=== PATIENT | female | born 1945 | race Caucasian/White ===

== ENCOUNTER → 2019-07-11 11:13 | Outpatient (BNVA) | payer MEDICARE, OTHER, SELFPAY | PROVIDERS: Family Provider Nurse Practitioner; PCP Nurse Practitioner; Visit Provider Nurse Practitioner | DX: E11.65 Type 2 diabetes mellitus with hyperglycemia (principal) | CPT/HCPCS: 80053; 80061; 83036 ==

== ENCOUNTER 2019-11-27 15:54 | Emergency (ER) | payer MEDICARE, OTHER, SELFPAY ==
[2019-11-27 16:01] VITALS: BMI 23.3
[2019-11-27 16:04] VITALS: BP 173/95; PULSE 116; RESP 20; TEMP 36.9; O2SAT 92
--- NOTE | 2019-11-27 16:25 | W.ED.EPISTAX ---
Documented by User: Irasema Kraft 11/27/19 16:45 HPI - Epistaxis General: Chief complaint: Epistaxis Stated complaint: NOSEBLEED Time Seen by Provider: 11/27/19 16:00 Source: patient Mode of arrival: EMS Limitations: no limitations History of Present Illness: HPI Narrative: nosebleed since waking up from nap about 2 hours ago complaint: epistaxis Location: left nostril Duration: constant Review of Systems General: Reports: 10 or more systems reviewed and unremarkable except in HPI and below ENMT: Reports: epistaxis PFSH ED PFSH: Medical History Benign hypertension Bipolar depression Controlled diabetes mellitus with hyperglycemia COPD mixed type Enrolled in chronic care management Frequency of micturition Surgical History H/O dilation and curettage History of appendectomy History of cataract History of salpingectomy History of thyroidectomy History of tonsillectomy and adenoidectomy Family History Other Diabetes Hypertension Denies family history of Bleeding disorder Social History Smoking and tobacco status: current every day smoker Second hand smoke exposure: Yes Smoking risk assessment/counseling performed?: Yes Alcohol intake: never Desire information about alcohol rehabilitation?: No Counseling given: No Desire information about substance/drug rehabilitation?: No Counseling given: No Caregiver/support person: No Lives independently: Yes Household members: none Marital status: Single service: No Current occupational status: retired History of recent travel: No Current gender identity: Female Physical Exam Const: COMMON NORMALS: no acute distress, patient oriented x3, no limitations and alert GENERAL APPEARANCE: cooperative and comfortable ORIENTATION/CONSCIOUSNESS: Yes awake, Yes oriented to person, Yes oriented to place and Yes oriented to time HENMT: COMMON NORMALS: normocephalic, atraumatic, external ears normal, EAC's normal, TM's normal bilaterally and Normal external nose present HEAD & SCALP: normal to inspection, normocephalic and atraumatic FACE & SINUS: normal facial exam, sinuses nontender and face symmetric NOSE: Normal external nose present and Epistaxis present on the left active bleeding, clots present and source not visualized EXTERNAL EAR: Yes external ears normal EXTERNAL AUDITORY CANAL: EAC's normal TYMPANIC MEMBRANE: TM's normal bilaterally MOUTH: Normal oral and palatal mucosa present, lip normal and tongue normal THROAT: posterior oropharynx normal, tonsils normal and uvula midline Eye: COMMON NORMALS: Equal, round and reactive pupils present, EOMs intact bilaterally and conjunctivae normal GENERAL EYE: appearance normal, both eyes and all related structures and normal light reflex EYELID: eyelids normal CONJUNCTIVA: Yes conjunctivae normal PUPIL: Yes Equal, round and reactive pupils present EOM: Yes EOM abnormal DIRECT OPHTHALMOSCOPY: Yes normal light reflex Neck/C-Spine: COMMON NORMALS: full ROM, no lymphadenopathy, supple, no meningeal signs, no JVD and Thyroid normal GENERAL: Yes normal visual inspection THYROID: Thyroid normal CERVICAL SPINE: Yes cervical ROM normal and Yes normal cervical lordosis Lymph: LYMPHATIC: no lymphadenopathy noted Chest: COMMONS NORMALS: normal inspection of the chest and normal palpation of entire chest wall Resp: COMMON NORMALS: normal respiratory effort, No retractions and clear to auscultation bilaterally AUSCULTATION: clear to auscultation bilaterally Cardio: COMMON NORMALS: no JVD, regular rate, regular rhythm, S1 normal heart sound present, S2 normal heart sound present, No gallops present (Cardio), No clicks present (Cardio), No murmurs present (Cardio), No rub (Cardio) and Peripheral pulses 2+ throughout RATE: regular rate RHYTHM: regular rhythm HEART SOUNDS: S1 normal heart sound present and S2 normal heart sound present PERIPHERAL PULSES: Peripheral pulses 2+ throughout GI: COMMON NORMALS: Normal to inspection, nondistended, normoactive bowel sounds present, Soft to palpation, non-tender and no masses PALPATION: Yes Soft to palpation : COMMON NORMALS: Yes no CVA tenderness and Yes normal external appearance BLADDER/KIDNEY EXAM: Yes no CVA tenderness Back/Pelvis: COMMON NORMALS: no CVA tenderness, thoracic and lumbar spine normal to inspection, no thoracic nor lumbar tenderness and thoraco-lumbar ROM normal Extremity: COMMON NORMALS: normal to inspection, full ROM, capillary refill normal, no joint enlargement, no clubbing, cyanosis or edema, no calf tenderness and no pedal edema GENERAL: Yes normal exam except as noted Neuro: COMMON NORMALS: patient oriented x3, moves all extremities, no focal motor deficits, no sensory deficits noted and gait normal SENSORIUM/ORIENTATION: Yes alert, Yes oriented to person, Yes oriented to place and Yes oriented to time MENINGEAL SIGNS: Yes no meningeal signs Psych: COMMON NORMALS: mental status grossly normal, Normal thought process present, cooperative, normal affect, speech normal and activity/motor behavior normal SPEECH: Yes normal speech THOUGHT PROCESS: Normal thought process present Skin: COMMON NORMALS: no rashes or lesions noted, no wounds and turgor normal GENERAL SKIN EXAM: no rashes or lesions noted and turgor normal Procedures Epistaxis Control Time Out Performed: No Nostril: left Direct Inspection: anterior source identified Clots Removed by: suction Cautery Used: none Device Inserted: nasal tampon Patient Tolerated Procedure: well and no complications Course ED course: Pt presents from home with active epistaxis. Unknown trauma and pt only takes asa daily. Has not taken in 3 days. Woke up from nap at 1500 and left nostril was bleeding. Nasal tampon inserted at bedside; labs ordered. Vital Signs: Vital signs: Vital Signs Temperature 98.5 F 11/27/19 16:04 Pulse Rate 100 11/27/19 17:40 Respiratory Rate 18 11/27/19 17:40 Blood Pressure 190/88 11/27/19 17:40 Pulse Oximetry 91 11/27/19 17:40 MDM - Epistaxis Lab Data: Labs: Lab Results 11/27/19 11/27/19 Range/Units 17:10 17:10 WBC 12.3 H (4.0-10.0) 10^3/ uL RBC 4.13 (4.1-5.3) 10^6/u L Hgb 11.0 L (11.5-15.3) g/dL Hct 36.1 L (37.0-47.0) % MCV 87.4 (81-99) fL MCH 26.6 L (28.0-34.0) pg MCHC 30.5 (30.0-36.0) g/dL RDW 14.6 (12.1-15.1) % Plt Count 270 (130-400) 10^3/c mm MPV 9.6 (7.4-10.4) fL Neut % (Auto) 87.0 % Lymph % (Auto) 4.0 % [place] % (Auto) 6.8 % Eos % (Auto) 1.5 % Baso % (Auto) 0.2 % Neut # (Auto) 10.72 H (1.8-7.7) 10^3/u L Lymph # (Auto) 0.5 L (0.8-4.8) 10^3/u L [place] # (Auto) 0.8 (0.2-0.9) 10^3/u L Eos # (Auto) 0.2 (0.0-0.8) 10^3/u L Baso # (Auto) 0.0 (0.0-0.1) 10^3/u L Nucleated RBC % (a uto) 0 % Nucleated RBCs # 0.0 /100WBC PT 14.20 H (10.5-13.3) SECO NDS INR 1.07 (0.8-1.2) APTT 35.1 (23.9-36.7) SECO NDS Discharge Plan Discharge Patient Disposition: Home Clinical Impression: Acute anterior epistaxis Condition: Stable Prescriptions: No Action aspirin [Aspir-81] 81 mg tablet,delayed release (DR/EC) 81 mg PO DAILY RF: 0 meclizine 12.5 mg tablet 12.5 mg PO DAILY RF: 0 tramadol 50 mg tablet 50 mg PO TID PRNRF: 0 atorvastatin [Lipitor] 10 mg tablet 10 mg PO DAILY Qty: 30 RF: 2 buspirone 10 mg tablet 10 mg PO BID PRN (Reason: anxiety) Qty: 60 RF: 2 Bydureon BCise 2 mg/0.85 mL auto-injector 2 mg SUBCUT Q7D Qty: 3.4 RF: 2 lamotrigine 100 mg tablet 100 mg PO DAILY Qty: 30 RF: 2 magnesium oxide 400 mg magnesium tablet 400 mg PO BID Qty: 60 RF: 2 oxybutynin chloride 5 mg tablet 5 mg PO BID Qty: 60 RF: 2 venlafaxine [Effexor XR] 75 mg capsule,extended release 24hr 75 mg PO BID Qty: 60 RF: 2 albuterol sulfate 2.5 mg /3 mL (0.083 %) solution for nebulization 2.5 mg INHALATION Q4H PRN (Reason: shortness of breath or wheezing) Qty: 180 RF: 2 Discharge Orders: Discharge Order (Routine); Ordered 11/27/19 Ordered By: Nely Beltrán Referrals: Ayesha Harris, [facility] [Primary Care Provider] - Rickey Chanel MD [Physician] - Patient Instructions: Epistaxis (ED), Epistaxis - Adult Activity Restrictions/Additional Instructions: Case management should contact you on Thursday to set you up an appointment with Dr. Chanel, ENT. If their office cannot see you in the next 48 to 72 hours you need to follow-up with your primary care provider or return to the emergency department to remove your nasal tampon. Return sooner for continued nasal bleeding. Sign Out Sign Out Data: Patient Sign Out occurred on 11/27/19 at 17:01. Patient's care was discussed, and care was transferred from to AILYN Mandujano. Coding Level of Care Code ED Community Living Specialist for Chg Fwd Exam Comprehensive Documented by User: AILYN Mandujano 11/27/19 18:00 HPI - Epistaxis General: Chief complaint: Epistaxis Stated complaint: NOSEBLEED Time Seen by Provider: 11/27/19 16:00 [facility] ED PFSH: Medical History Benign hypertension Bipolar depression Controlled diabetes mellitus with hyperglycemia COPD mixed type Enrolled in chronic care management Frequency of micturition Surgical History H/O dilation and curettage History of appendectomy History of cataract History of salpingectomy History of thyroidectomy History of tonsillectomy and adenoidectomy Family History Other Diabetes Hypertension Denies family history of Bleeding disorder Social History Smoking and tobacco status: current every day smoker Second hand smoke exposure: Yes Smoking risk assessment/counseling performed?: Yes Alcohol intake: never Desire information about alcohol rehabilitation?: No Counseling given: No Desire information about substance/drug rehabilitation?: No Counseling given: No Caregiver/support person: No Lives independently: Yes Household members: none Marital status: Single service: No Current occupational status: retired History of recent travel: No Current gender identity: Female Course Vital Signs: Vital signs: Vital Signs Temperature 98.5 F 11/27/19 16:04 Pulse Rate 100 11/27/19 17:40 Respiratory Rate 18 11/27/19 17:40 Blood Pressure 190/88 11/27/19 17:40 Pulse Oximetry 91 11/27/19 17:40 MDM - Epistaxis MDM Narrative: Medical decision making narrative: Care was assumed from DEVONTE Putnam. At shift change she had already placed an anterior tampon to patient's left nare. We were pending results of patient CBC/coags. These are not concerning at this time. Upon reassessment patient has not had any further bleeding since the tampon was placed. I will go ahead and place referral for ENT for follow-up. Recommend if she cannot get into see Dr. Chanel in the next 48 to 72 hours she needs to follow-up with her primary care provider or return to the emergency department for nasal tampon removal. Lab Data: Labs: Lab Results 11/27/19 11/27/19 Range/Units 17:10 17:10 WBC 12.3 H (4.0-10.0) 10^3/ uL RBC 4.13 (4.1-5.3) 10^6/u L Hgb 11.0 L (11.5-15.3) g/dL Hct 36.1 L (37.0-47.0) % MCV 87.4 (81-99) fL MCH 26.6 L (28.0-34.0) pg MCHC 30.5 (30.0-36.0) g/dL RDW 14.6 (12.1-15.1) % Plt Count 270 (130-400) 10^3/c mm MPV 9.6 (7.4-10.4) fL Neut % (Auto) 87.0 % Lymph % (Auto) 4.0 % [place] % (Auto) 6.8 % Eos % (Auto) 1.5 % Baso % (Auto) 0.2 % Neut # (Auto) 10.72 H (1.8-7.7) 10^3/u L Lymph # (Auto) 0.5 L (0.8-4.8) 10^3/u L [place] # (Auto) 0.8 (0.2-0.9) 10^3/u L Eos # (Auto) 0.2 (0.0-0.8) 10^3/u L Baso # (Auto) 0.0 (0.0-0.1) 10^3/u L Nucleated RBC % (a uto) 0 % Nucleated RBCs # 0.0 /100WBC PT 14.20 H (10.5-13.3) SECO NDS INR 1.07 (0.8-1.2) APTT 35.1 (23.9-36.7) SECO NDS Discharge Plan Discharge Patient Disposition: Home Clinical Impression: Acute anterior epistaxis Condition: Stable Prescriptions: No Action aspirin [Aspir-81] 81 mg tablet,delayed release (DR/EC) 81 mg PO DAILY RF: 0 meclizine 12.5 mg tablet 12.5 mg PO DAILY RF: 0 tramadol 50 mg tablet 50 mg PO TID PRNRF: 0 atorvastatin [Lipitor] 10 mg tablet 10 mg PO DAILY Qty: 30 RF: 2 buspirone 10 mg tablet 10 mg PO BID PRN (Reason: anxiety) Qty: 60 RF: 2 Bydureon BCise 2 mg/0.85 mL auto-injector 2 mg SUBCUT Q7D Qty: 3.4 RF: 2 lamotrigine 100 mg tablet 100 mg PO DAILY Qty: 30 RF: 2 magnesium oxide 400 mg magnesium tablet 400 mg PO BID Qty: 60 RF: 2 oxybutynin chloride 5 mg tablet 5 mg PO BID Qty: 60 RF: 2 venlafaxine [Effexor XR] 75 mg capsule,extended release 24hr 75 mg PO BID Qty: 60 RF: 2 albuterol sulfate 2.5 mg /3 mL (0.083 %) solution for nebulization 2.5 mg INHALATION Q4H PRN (Reason: shortness of breath or wheezing) Qty: 180 RF: 2 Discharge Orders: Discharge Order (Routine); Ordered 11/27/19 Ordered By: Nely Beltrán Referrals: Ayesha Harris, [facility] [Primary Care Provider] - Rickey Chanel MD [Physician] - Patient Instructions: Epistaxis (ED), Epistaxis - Adult Activity Restrictions/Additional Instructions: Case management should contact you on Thursday to set you up an appointment with Dr. Chanel, ENT. If their office cannot see you in the next 48 to 72 hours you need to follow-up with your primary care provider or return to the emergency department to remove your nasal tampon. Return sooner for continued nasal bleeding. Sign Out Sign Out Data: Patient Sign Out occurred on 11/27/19 at 17:01. Patient's care was discussed, and care was transferred from to AILYN Mandujano. Coding Level of Care Code ED Community Living Specialist for Chg Fwd Exam Comprehensive
[2019-11-27 17:40] VITALS: BP 190/88; PULSE 100; RESP 18; O2SAT 91
[2019-11-27 17:44] LABS: Basophils % 0.2 %; Eosinophils # 0.2 10^3/uL (0.0-0.8); Eosinophils % 1.5 %; Hematocrit 36.1 % (37.0-47.0); Lymphocytes # 0.5 10^3/uL (0.8-4.8); Mean Corpuscular HGB Conc 30.5 g/dL (30.0-36.0); Mean Corpuscular Hemoglobin 26.6 pg (28.0-34.0); Mean Corpuscular Volume 87.4 fL (81-99); Mean Platelet Volume 9.6 fL (7.4-10.4); Monocytes # 0.8 10^3/uL (0.2-0.9); Monocytes % 6.8 %; Neutrophils # 10.72 10^3/uL (1.8-7.7); Nucleated Red Blood Cells % 0 %; Platelet Count 270 10^3/cmm (130-400); Red Blood Count 4.13 10^6/uL (4.1-5.3); Red Cell Distribution Width 14.6 % (12.1-15.1); White Blood Count 12.3 10^3/uL (4.0-10.0)
[2019-11-27 17:54] LABS: INR 1.07 (0.8-1.2)
[2019-11-27 17:55] LABS: Partial Thromboplastin Time 35.1 SECONDS (23.9-36.7)
[2019-11-27 18:17] VITALS: BP 181/77; PULSE 93; RESP 20; O2SAT 93
--- NOTE | 2019-11-28 09:34 | PC.SOCIAL ---
Spoke with Moriah at Dr Chanel office to alert her sending two referrals. Faxed this patient referral along with another one to number provided with confirmation that fax was sent successfully. Per Dr Chanel office they will call patient and let us know when appt scheduled.
--- NOTE | 2019-11-28 15:02 | PC.SOCIAL ---
Call received by Chrystal at ENT Dr Chanel office regarding the referral sent to her this am. Patient is scheduled for November 29, 2019 at 9:30am to follow up at clinic. Per Chrystal patient has been notified.
--- NOTE | 2019-11-30 12:19 | PC.SOCIAL ---
Call received yesterday by Dr Chanel office and patient did not attend her appointment.
--- NOTE | 2019-11-30 12:22 | PC.SOCIAL ---
Followed up with patient and she indicates she no longer needs to be seen by Dr Chanel. She was unable to make it to appointment per her report. She indicates doing well now.
== END 2019-11-27 18:11 | disposition home or self-care (01) ==
PROVIDERS: Nurse Practitioner Family; Emergency Provider Physician Assistant; PCP Nurse Practitioner
DX: R04.0 Epistaxis (principal); Z79.82 Long term (current) use of aspirin; I10 Essential (primary) hypertension; E11.9 Type 2 diabetes mellitus without complications; J44.9 Chronic obstructive pulmonary disease, unspecified; F17.210 Nicotine dependence, cigarettes, uncomplicated
CPT/HCPCS: 30901; 12345; 36415; 85025; 85610; 85730; 99282

== ENCOUNTER 2019-12-07 10:55 | Emergency (ER) | payer MEDICARE, OTHER, SELFPAY ==
[2019-12-07] VITALS (7 sets, daily range): BP systolic 158–170; BP diastolic 65–104; PULSE 79–127; RESP 16–26; TEMP 36.6; O2SAT 93–98; BMI 19.3
--- NOTE | 2019-12-07 11:05 | XRR_ITS ---
PROCEDURE INFORMATION: Exam: XR Chest, 1 View Exam date and time: 12/07/2019 12:28 PM Age: 74 years old Clinical indication: Other: Weakness/dizzy x 2 weeks; Patient HX: Weak and dizzy x 2 weeks. HX copd. HX diabetes. HX cervical cancer TECHNIQUE: Imaging protocol: XR of the chest Views: 1 view. COMPARISON: CR Chest 2 views* [id number] 02/05/2016 10:41 AM FINDINGS: Lungs: COPD, interstitial prominence, and right basilar airspace disease. Pleural space: No significant pleural effusion. Heart/Mediastinum: No cardiomegaly. Bones/joints: Osteopenia and degenerative change. XR/XR chest 1V portable [id number] IMPRESSION: COPD, interstitial prominence, and right basilar airspace disease.
--- NOTE | 2019-12-07 11:18 | ECG_ITS ---
[facility] Test Date: 2019-12-07 Pat Name: Kia Jimenez Department: Room: Gender: Female Color Specialist: : 1945 Requested By: Uma Devine Order Number: [id number] [place] MD: Myke Schaeffer M.D. Measurements Intervals [place] Rate: 118 P: [place]: -1 QRS: 60 QRSD: 85 T: 85 QT: 301 QTc: 422 Interpretive Statements ATRIAL FLUTTER WITH VARIABLE CONDUCTION AND RAPID VENTRICULAR RESPONSE NONSPECIFIC ST & T-WAVE ABNORMALITY ABNORMAL RHYTHM ECG No previous ECG available for comparison Electronically Signed On 12-07-2019 12:18:54 CDT by Myke Schaeffer M.D. [email or web address]
--- NOTE | 2019-12-07 11:32 | W.ED.WEAKNES ---
HPI - Weakness General: Chief complaint: Weakness Stated complaint: V/D WEAKNESS Time Seen by Provider: 12/07/19 11:03 History of Present Illness: HPI Narrative: This patient is a 74-year-old female presenting today with weakness. She tells me that this is been going on since February of last year. She said that at that time she went to her primary care doctor with vaginal bleeding and was referred to Dr. patricio gray. After lots of testing she finally got results in June and learned that she had cancer of the uterus and cervix. Dr. patricio gray did not think surgery was a good option and referred her back to Dr. Quintana for chemotherapy and radiation. She has not started any treatment yet, she says because of COVID. She said she is continued to have vaginal bleeding on a daily basis. She denies any history of bleeding disorder. She also has diabetes. During my history she told me that she had not seen a doctor since June but when I reviewed her old records she saw her PCP, Ayesha Harris in October and was here in the ED just a few weeks ago with a nosebleed. At that time she had her labs checked and her hemoglobin was 11. She also told me that she was out of medications at home because she had not seen her primary care doctor but I will have to clarify that with her as well. Her past medical records do not mention anything about uterine cancer and I do not see any notes from Dr. Quintana. She also was noted to have a history of bipolar disorder. She tells me she lives alone and has no help. She said she has not been able to eat recently because she is so weak that she cannot make her self any food. Complaint: generalized weakness, lack of energy and difficulty walking Onset (ago): month(s) Duration: constant Location: generalized Relieving factors: none Exacerbating factors: none Associated symptoms: Denies chest pain or easy bruising Review of Systems General: Reports: 10 or more systems reviewed and unremarkable except in HPI and below Const: Reports: change in appetite, fatigue and malaise Card: Reports: lightheadedness and dyspnea on exertion; Denies: chest pain, palpitations or irregular heart rhythm Resp: Reports: dyspnea : Reports: vaginal bleeding Neuro: Reports: weakness in extremities and difficulty walking Psych: Reports: depression Endo: Reports: polydipsia Enmanuel/Lymph: Denies: easy bruising or easy bleeding PFSH ED PFS: Medical History Benign hypertension Bipolar depression Controlled diabetes mellitus with hyperglycemia COPD mixed type Enrolled in chronic care management Frequency of micturition Surgical History H/O dilation and curettage History of appendectomy History of cataract History of salpingectomy History of thyroidectomy History of tonsillectomy and adenoidectomy Family History Other Diabetes Hypertension Denies family history of Bleeding disorder Social History Smoking and tobacco status: current every day smoker Second hand smoke exposure: Yes Smoking risk assessment/counseling performed?: Yes Alcohol intake: never Desire information about alcohol rehabilitation?: No Counseling given: No Desire information about substance/drug rehabilitation?: No Counseling given: No Caregiver/support person: No Lives independently: Yes Household members: none Marital status: Single service: No Current occupational status: retired History of recent travel: No Current gender identity: Female Physical Exam Const: COMMON NORMALS: no acute distress, patient oriented x3, no limitations and alert GENERAL APPEARANCE: cooperative, comfortable, well kempt and frail appearing NUTRITIONAL APPEARANCE: thin HENMT: HEAD & SCALP: normal to inspection FACE & SINUS: normal facial exam Eye: GENERAL EYE: appearance normal, both eyes and all related structures Neck/C-Spine: COMMON NORMALS: supple, no meningeal signs and no JVD Chest: COMMONS NORMALS: normal inspection of the chest Resp: COMMON NORMALS: normal respiratory effort, No use of accessory muscles and clear to auscultation bilaterally AUSCULTATION: clear to auscultation bilaterally Cardio: COMMON NORMALS: no JVD and No murmurs present (Cardio) RATE: tachycardic RHYTHM: abnormal rhythm irregularly irregular GI: COMMON NORMALS: Normal to inspection, nondistended, normoactive bowel sounds present and Soft to palpation INSPECTION: Yes normal to inspection AUSCULTATION: Yes normoactive bowel sounds PALPATION: Yes Soft to palpation and Yes Tenderness to palpation present (GI) Details: LLQ (Very mild) Back/Pelvis: COMMON NORMALS: thoracic and lumbar spine normal to inspection Extremity: COMMON NORMALS: normal to inspection Neuro: COMMON NORMALS: patient oriented x3, moves all extremities, no focal motor deficits and no sensory deficits noted SENSORIUM/ORIENTATION: Yes alert MENINGEAL SIGNS: Yes no meningeal signs Psych: COMMON NORMALS: mental status grossly normal, cooperative and normal affect APPEARANCE: Yes well kempt Skin: COMMON NORMALS: no rashes or lesions noted and turgor normal GENERAL SKIN EXAM: no rashes or lesions noted and turgor normal Course ED course: Patient presents with tachycardia and weakness. She was noted to be in atrial flutter which seems to be new for her. This responded nicely to Cardizem and after several hours on the drip we were able to convert her to p.o. Cardizem. Vital signs remained stable. Her labs reflect acute renal failure. Her creatinine is 9.3 and her BUN is 126. Her CO2 is 16 and potassium is 4.5. CT was done and CT of the abdomen showed questionable cholecystitis which was not confirmed by ultrasound. The gallbladder wall thickening was felt to be chronic. CT the pelvis showed a mass in the area of the cervix which was compressing on the ureters. She had significant hydro-ureter particularly on the right. A catheter was placed and she did have quite a bit of urine output initially but she could not tolerate the catheter and insisted that it was removed. Chest x-ray showed potentially a right lower lobe infiltrate. Her white blood cell count was elevated at 17.8. Urine showed possibly a mild infection as well. She was given a dose of Rocephin in the ED as well as IV Zithromax to cover both pneumonia and UTI. She rested comfortably after her work-up and I waited for Dr. patricio gray to call me back. When he called back and we discussed the case he felt that the best plan was to transfer her to [facility] for him to manage her. She is in agreement with that plan. Were awaiting a bed assignment and transportation to [facility]. Vital Signs: Vital signs: Vital Signs Temperature 97.8 F 12/07/19 11:37 Pulse Rate 91 12/07/19 20:11 Respiratory Rate 16 12/07/19 20:11 Blood Pressure 170/65 12/07/19 20:11 Pulse Oximetry 98 12/07/19 20:11 MDM - Weakness Lab Data: Labs: Lab Results 12/07/19 12/07/19 12/07/19 Range/Units 11:55 11:55 11:55 WBC 17.8 H (4.0-10.0) 10^3/ uL RBC 4.28 (4.1-5.3) 10^6/u L Hgb 11.4 L (11.5-15.3) g/dL Hct 35.9 L (37.0-47.0) % MCV 83.9 (81-99) fL MCH 26.6 L (28.0-34.0) pg MCHC 31.8 (30.0-36.0) g/dL RDW 15.8 H (12.1-15.1) % Plt Count 308 (130-400) 10^3/c mm MPV 9.3 (7.4-10.4) fL Neut % (Auto) 87.7 % Lymph % (Auto) 5.1 % Nicol[place] % (Auto) 5.4 % Eos % (Auto) 0.8 % Baso % (Auto) 0.4 % Neut # (Auto) 15.62 H (1.8-7.7) 10^3/u L Lymph # (Auto) 0.9 (0.8-4.8) 10^3/u L [place] # (Auto) 1.0 H (0.2-0.9) 10^3/u L Eos # (Auto) 0.1 (0.0-0.8) 10^3/u L Baso # (Auto) 0.1 (0.0-0.1) 10^3/u L Nucleated RBC % (a uto) 0 % Nucleated RBCs # 0.0 /100WBC Sodium 135 L (136-145) mmol/L Potassium 4.5 (3.5-5.1) mmol/L Chloride 102 (98-107) mmol/L Carbon Dioxide 16 L (22-29) mmol/L Anion Gap 21.5 H (5-19) BUN 126 H* D (8-23) mg/dL Creatinine 9.8 H* (0.5-0.9) mg/dL GFR Calculation Not Reportable Glucose 174 H (65-115) mg/dL Calculated Osmolal ity 287 (285-295) mOsm/k g Lactic Acid 0.9 (0.5-2.2) mmol/L Calcium 8.8 (8.5-10.5) mg/dL Magnesium 3.2 H (1.7-2.3) mg/dL Total Bilirubin 0.3 (0.15-1.2) mg/dL AST 17 (0-32) U/L ALT 13 (0-33) U/L Alkaline Phosphata se 94 (35-105) IU/L Troponin T Baselin e (0-10) ng/L Troponin T 120 Min [place] (0-10) ng/L Delta Troponin T (0-10) ABS# Troponin T Hi Sens 6Hr (0-10) ng/L Troponin T Hi Sens 6Hr Delta (0-12) ng/L Total Protein 7.3 (6.6-8.7) g/dL Albumin 4.3 (3.5-5.2) g/dL Globulin 3.0 (1.3-4.6) g/dL Urine Color (Yellow) Urine Appearance (CLEAR) Urine pH (5-7) Ur Specific Gravit y (1.005-1.030) Urine Protein (Negative) Urine Glucose (UA) (Normal) Urine Ketones (Negative) Urine Blood (Negative) Urine Nitrate (Negative) Urine Bilirubin (NEGATIVE) Urine Urobilinogen (Negative) mg/dL Ur Leukocyte Catherine ase (Negative) Urine RBC (0-2) /hpf Urine WBC (0-5) /hpf Ur Squamous Epith Cells (0-5) Amorphous Sediment Urine Bacteria (NONE) Blood Type Rho(D) Type Antibody Screen 12/07/19 12/07/19 12/07/19 Range/Units 11:55 11:55 13:35 WBC (4.0-10.0) 10^3/ uL RBC (4.1-5.3) 10^6/u L Hgb (11.5-15.3) g/dL Hct (37.0-47.0) % MCV (81-99) fL MCH (28.0-34.0) pg MCHC (30.0-36.0) g/dL RDW (12.1-15.1) % Plt Count (130-400) 10^3/c mm MPV (7.4-10.4) fL Neut % (Auto) % Lymph % (Auto) % Nicol[place] % (Auto) % Eos % (Auto) % Baso % (Auto) % Neut # (Auto) (1.8-7.7) 10^3/u L Lymph # (Auto) (0.8-4.8) 10^3/u L [place] # (Auto) (0.2-0.9) 10^3/u L Eos # (Auto) (0.0-0.8) 10^3/u L Baso # (Auto) (0.0-0.1) 10^3/u L Nucleated RBC % (a uto) % Nucleated RBCs # /100WBC Sodium (136-145) mmol/L Potassium (3.5-5.1) mmol/L Chloride (98-107) mmol/L Carbon Dioxide (22-29) mmol/L Anion Gap (5-19) BUN (8-23) mg/dL Creatinine (0.5-0.9) mg/dL GFR Calculation Glucose (65-115) mg/dL Calculated Osmolal ity (285-295) mOsm/k g Lactic Acid (0.5-2.2) mmol/L Calcium (8.5-10.5) mg/dL Magnesium (1.7-2.3) mg/dL Total Bilirubin (0.15-1.2) mg/dL AST (0-32) U/L ALT (0-33) U/L Alkaline Phosphata se (35-105) IU/L Troponin T Baselin e 53 H (0-10) ng/L Troponin T 120 Min [place] (0-10) ng/L Delta Troponin T (0-10) ABS# Troponin T Hi Sens 6Hr (0-10) ng/L Troponin T Hi Sens 6Hr Delta (0-12) ng/L Total Protein (6.6-8.7) g/dL Albumin (3.5-5.2) g/dL Globulin (1.3-4.6) g/dL Urine Color Yellow (Yellow) Urine Appearance Clear (CLEAR) Urine pH 6 (5-7) Ur Specific Gravit y 1.005 (1.005-1.030) Urine Protein Neg (Negative) Urine Glucose (UA) 2+ (Normal) Urine Ketones Negative (Negative) Urine Blood 3+ H (Negative) Urine Nitrate Negative (Negative) Urine Bilirubin Neg (NEGATIVE) Urine Urobilinogen Neg (Negative) mg/dL Ur Leukocyte Catherine ase Negative (Negative) Urine RBC 25-40 H (0-2) /hpf Urine WBC 0-4 H (0-5) /hpf Ur Squamous Epith Cells None (0-5) Amorphous Sediment Not Reportable Urine Bacteria 1+ H (NONE) Blood Type A Positive Rho(D) Type Positive Antibody Screen Negative 12/07/19 12/07/19 Range/Units 14:06 18:08 WBC (4.0-10.0) 10^3/ uL RBC (4.1-5.3) 10^6/u L Hgb (11.5-15.3) g/dL Hct (37.0-47.0) % MCV (81-99) fL MCH (28.0-34.0) pg MCHC (30.0-36.0) g/dL RDW (12.1-15.1) % Plt Count (130-400) 10^3/c mm MPV (7.4-10.4) fL Neut % (Auto) % Lymph % (Auto) % [place] % (Auto) % Eos % (Auto) % Baso % (Auto) % Neut # (Auto) (1.8-7.7) 10^3/u L Lymph # (Auto) (0.8-4.8) 10^3/u L [place] # (Auto) (0.2-0.9) 10^3/u L Eos # (Auto) (0.0-0.8) 10^3/u L Baso # (Auto) (0.0-0.1) 10^3/u L Nucleated RBC % (a uto) % Nucleated RBCs # /100WBC Sodium (136-145) mmol/L Potassium (3.5-5.1) mmol/L Chloride (98-107) mmol/L Carbon Dioxide (22-29) mmol/L Anion Gap (5-19) BUN (8-23) mg/dL Creatinine (0.5-0.9) mg/dL GFR Calculation Glucose (65-115) mg/dL Calculated Osmolal ity (285-295) mOsm/k g Lactic Acid (0.5-2.2) mmol/L Calcium (8.5-10.5) mg/dL Magnesium (1.7-2.3) mg/dL Total Bilirubin (0.15-1.2) mg/dL AST (0-32) U/L ALT (0-33) U/L Alkaline Phosphata se (35-105) IU/L Troponin T Baselin e (0-10) ng/L Troponin T 120 Min [place] 42.06 H (0-10) ng/L Delta Troponin T -10.94 L (0-10) ABS# Troponin T Hi Sens 6Hr 52.58 H (0-10) ng/L Troponin T Hi Sens 6Hr Delta -0.42 L (0-12) ng/L Total Protein (6.6-8.7) g/dL Albumin (3.5-5.2) g/dL Globulin (1.3-4.6) g/dL Urine Color (Yellow) Urine Appearance (CLEAR) Urine pH (5-7) Ur Specific Gravit y (1.005-1.030) Urine Protein (Negative) Urine Glucose (UA) (Normal) Urine Ketones (Negative) Urine Blood (Negative) Urine Nitrate (Negative) Urine Bilirubin (NEGATIVE) Urine Urobilinogen (Negative) mg/dL Ur Leukocyte Catherine ase (Negative) Urine RBC (0-2) /hpf Urine WBC (0-5) /hpf Ur Squamous Epith Cells (0-5) Amorphous Sediment Urine Bacteria (NONE) Blood Type Rho(D) Type Antibody Screen EKG Data^: EKG 1: EKG interpretation date: 12/07/19 EKG interpretation time: 11:31 Interpretation: EKG shows a ventricular rate of 118 with atrial flutter. Nonspecific ST-T wave changes likely related to rate and rhythm. Normal QRS duration and QTC. Discharge Plan Discharge Patient Disposition: Xfer Other Clinical Impression: Atrial flutter with rapid ventricular response, Infiltrate of lower lobe of right lung present on imaging study Acute renal failure Qualifiers: Acute renal failure type: unspecified Qualified Code(s): N17.9 - Acute kidney failure, unspecified Malignant neoplasm cervix Qualifiers: Malignant neoplasm of cervix location: unspecified location Qualified Code(s): C53.9 - Malignant neoplasm of cervix uteri, unspecified Condition: Stable Referrals: Ayesha Harris, COMM[facility] RESOURCE CONSULTANT[facility] [Primary Care Provider] - Discharge Date/Time: 08/05/20 21:01 Coding Level of Care Code ED Talent Program Manager for Chg Fwd Exam Comprehensive
[2019-12-07] MEDS: sodium chloride 0.9% 500 ML 999 ML IV (11:54)
[2019-12-07 12:09] LABS: Basophils # 0.1 10^3/uL (0.0-0.1); Basophils % 0.4 %; Eosinophils # 0.1 10^3/uL (0.0-0.8); Eosinophils % 0.8 %; Hematocrit 35.9 % (37.0-47.0); Hemoglobin 11.4 g/dL (11.5-15.3); Lymphocytes # 0.9 10^3/uL (0.8-4.8); Lymphocytes % 5.1 %; Mean Corpuscular HGB Conc 31.8 g/dL (30.0-36.0); Mean Corpuscular Hemoglobin 26.6 pg (28.0-34.0); Mean Corpuscular Volume 83.9 fL (81-99); Mean Platelet Volume 9.3 fL (7.4-10.4); Monocytes % 5.4 %; Neutrophils # 15.62 10^3/uL (1.8-7.7); Neutrophils % 87.7 %; Nucleated Red Blood Cells % 0 %; Platelet Count 308 10^3/cmm (130-400); Red Blood Count 4.28 10^6/uL (4.1-5.3); Red Cell Distribution Width 15.8 % (12.1-15.1); White Blood Count 17.8 10^3/uL (4.0-10.0)
[2019-12-07 12:33] LABS: Lactic Sepsis W/Reflex 0.9 mmol/L (0.5-2.2)
[2019-12-07 12:37] LABS: Alanine Aminotransferase 13 U/L (0-33); Albumin Level 4.3 g/dL (3.5-5.2); Alkaline Phosphatase 94 IU/L (35-105); Aspartate Amino Transferase 17 U/L (0-32); Calcium 8.8 mg/dL (8.5-10.5); Carbon Dioxide 16 mmol/L (22-29); Chloride 102 mmol/L (98-107); Glucose 174 mg/dL (65-115); Magnesium 3.2 mg/dL (1.7-2.3); Sodium 135 mmol/L (136-145); Total Bilirubin 0.3 mg/dL (0.15-1.2); Total Protein 7.3 g/dL (6.6-8.7)
[2019-12-07 12:40] LABS: Troponin(5th) Baseline 53 ng/L (0-10)
--- NOTE | 2019-12-07 12:41 | CTR_ITS ---
PROCEDURE INFORMATION: Exam: CT Abdomen Without Contrast Exam date and time: 12/07/2019 12:50 PM Age: 74 years old Clinical indication: Vomiting; Additional info: Renal failure, uterine cancer, vomiting TECHNIQUE: Imaging protocol: Computed tomography images of the abdomen without contrast. Radiation optimization: All CT scans at this facility use at least one of these dose optimization techniques: automated exposure control; mA and/or kV adjustment per patient size (includes targeted exams where dose is matched to clinical indication); or iterative reconstruction. COMPARISON: No relevant prior studies available. RADIATION DOSE METRICS: Total DLP (mGy-cm): 291.47 FINDINGS: Detailed evaluation of the abdominal and pelvic viscera is somewhat limited in the absence of intravenous contrast. Lungs: Interstitial prominence and asymmetric right basilar coronary artery calcification. Small hiatal hernia. Liver: Fatty infiltration of the liver. Poorly characterized 4 mm nodular hypodensity in the left hepatic lobe. Gallbladder and bile ducts: Cholelithiasis and questionable pericholecystic fluid. Ultrasound correlation is recommended for improved characterization. No biliary ductal dilatation. Pancreas: No pancreatic mass or ductal dilatation. Spleen: No splenomegaly. Adrenals: Asymmetric left adrenal enlargement and nodularity. Kidneys and ureters: Marked bilateral hydronephrosis along with multiple subcentimeter nonobstructing bilateral renal calculi. Stomach and bowel: 2.6 cm duodenal diverticulum. Combined small bowel and colonic dilatation along with prominent stool. Diverticula, without pericolonic inflammation. Lymph nodes: Subcentimeter lymph nodes. Vasculature: Prominent vascular calcification. No abdominal aortic aneurysm. Bones/joints: Osteopenia, degenerative change and disc bulging. Soft tissues: Small umbilical hernia. Subcentimeter subcutaneous nodular densities in the anterior abdominal wall, believed to be iatrogenic in nature. CT/CT abdomen wo con [id number] IMPRESSION: 1. Cholelithiasis and questionable pericholecystic fluid. Ultrasound correlation is recommended for improved characterization. 2. Marked bilateral hydronephrosis along with multiple subcentimeter nonobstructing bilateral renal calculi. 3. Additional findings as described above. Radiation Dose CTDIVOL = (mGy): DLP = 291.47 (mGy-cm)
[2019-12-07 12:57] LABS: Anion Gap 21.5 (5-19); Blood Urea Nitrogen 126 mg/dL (8-23); Osmolality Calculated 287 mOsm/kg (285-295); Potassium 4.5 mmol/L (3.5-5.1)
--- NOTE | 2019-12-07 13:18 | ECG_ITS ---
[facility] Test Date: 2019-12-07 Pat Name: Kia Jimenez Department: Room: Gender: Female Multimedia Author: : 1945 Requested By: Uma Devine Order Number: [id number] [place] MD: Myke Schaeffer M.D. Measurements Intervals [place] Rate: 86 P: 42 NJ: 148 QRS: 30 QRSD: 87 T: 35 QT: 368 QTc: 441 Interpretive Statements SINUS RHYTHM NONSPECIFIC T-WAVE ABNORMALITY Compared to ECG 12/07/2019 11:22:59 Atrial flutter no longer present T-wave abnormality still present Electronically Signed On 12-07-2019 17:55:55 CDT by Myke Schaeffer M.D. [id number]
--- NOTE | 2019-12-07 13:26 | US_ITS ---
WS: [id number] RIGHT UPPER QUADRANT ULTRASOUND HISTORY: possible cholecystis COMPARISON: None available. Liver: 14.3 cm in length. Normal size and echogenicity with no intrahepatic dilatation. No mass. Gallbladder: Well distended gallbladder with stones. There is mild diffuse gallbladder wall thickenin g but no pericholecystic fluid. There are multiple moderate-sized stones. CBD: 0.4 cm Pancreas: Normal size and echogenicity. Right kidney: 11.5 cm in length. Moderate to severe hydrocephalus of the RIGHT kidney was previously described by CT. Aorta and IVC: Unremarkable. No ascites. US/US gall bladder [id number] IMPRESSION: 1. Cholelithiasis with mild diffuse gallbladder wall thickening. Gallbladder w all thickening without pericholecystic fluid. Suspect the gallbladder wall thic kening is probably chronic. 2. No bile duct dilatation. 3. Moderate to severe hydronephrosis RIGHT kidney.
[2019-12-07] MEDS: cefTRIAXone 1,000 MG in sodium chloride 0.9% (plus) 50 ML 100 MG IV (13:30)
--- NOTE | 2019-12-07 13:31 | CT_ITS ---
WS: [id number] CT PELVIS WITHOUT HISTORY: uterine cancer TECHNIQUE: Contiguous imaging is performed of the pelvis without contrast. Coronal and sagittal refor mats are reviewed. All CT scans at [facility] use at least one of these dose optimization techniques: automated exposure control; mA and/or kV adjustment per patient size (includes targeted exams where dose is matched to clinical indication); or iterative reconstruction. DLP: 349.58 mGy.cm COMPARISON: 03/05/2019 and 02/25/2019 Study is compromised without IV or oral contrast. Patient has known bilateral hydronephrosis as seen on a recent CT. Both ureters are dilated into the pelvis. Uterus remains present and contains calcifications and is lobulated. There is a soft tissue mass in the region of the cervix measuring 6.1 x 4.2 cm. Soft tissue mass extends posterior to the an terior rectal wall and also laterally towards the distal ureters. Small cyst in the RIGHT ovary measures 3.1 cm and has been previously described. Sigmoid diverticulos is. CT/CT pelvis wo con [id number] IMPRESSION: 1. Soft tissue mass in the region of the endocervical junction with extension posteriorly towards the rectum and laterally towards the distal ureters measure s 6.1 x 4.2 cm. Consistent with the known [place] [employer] neoplasm. Progression in size sin ce 02/25/2019. 2. Distal ureters are obstructed by the [place] [employer] tumor.
[2019-12-07] MEDS: azithromycin 500 MG in sodium chloride 0.9% 250 ML 250 MG IV (14:05)
[2019-12-07 14:10] LABS: Glucose Urine UA 2+ (Normal); Ketones Urine Negative (Negative); Protein Urine Neg (Negative); Specific Gravity, Urine 1.005 (1.005-1.030); Urine Appearance Clear (CLEAR); Urine Color Yellow (Yellow); pH Urine 6 (5-7)
[2019-12-07 14:11] LABS: Add Urine Microscopic? YES; Bilirubin Urine Neg (NEGATIVE); Blood Urine 3+ (Negative); Leukocyte Esterase Urine Negative (Negative); Nitrate Urine Negative (Negative); Urobilinogen Urine Neg (Negative)
[2019-12-07] MEDS: ondansetron 2 mg/ML SDV 2 mL 4 MG IVP (14:13)
[2019-12-07 14:22] LABS: Add Urine Culture? Yes; RBC Urine 25-40 /hpf (0-2); WBC Urine 0-4 /hpf (0-5)
[2019-12-07 14:23] LABS: Bacteria Urine 1+
[2019-12-07 14:33] LABS: Troponin 5 2HR 42.06 ng/L (0-10)
[2019-12-07 18:45] LABS: Troponin 5 6HR 52.58 ng/L (0-10)
[2019-12-07 18:50] LABS: Troponin 5 6HR Delta -0.42 ng/L (0-12)
[2019-12-07] MEDS: dilTIAZem ER (24HR) 180 mg Capsule PO (19:16)
--- NOTE | 2019-12-08 11:46 | DCPLANNER ---
field training manager called the office of Dr. Chanel to confirm if an appointment had been scheduled for patient. field training manager spoke with Analy, was told that an appointment had been scheduled for patient for 11.29.19 and patient did not attend appointment.
== END 2019-12-07 21:01 | disposition other institution (70) ==
PROVIDERS: Emergency Provider Emergency Medicine; PCP Nurse Practitioner
DX: I48.92 Unspecified atrial flutter (principal); R91.8 Other nonspecific abnormal finding of lung field; N17.9 Acute kidney failure, unspecified; C53.9 Malignant neoplasm of cervix uteri, unspecified; I10 Essential (primary) hypertension; E11.9 Type 2 diabetes mellitus without complications; J44.9 Chronic obstructive pulmonary disease, unspecified; F17.210 Nicotine dependence, cigarettes, uncomplicated
CPT/HCPCS: 12345; 36415; 51702; 71045; 72192; 74150; 76705; 80053; 81001; 83605; 83735; 84484; 85025; 86850; 86900; 87086; 93005; 93010; 96360; 96361; 96365; 96366; 96367; 96368; 96375; 99284; 99285; J0456; J0696; J2405; J3490; J7040; J7050

== ENCOUNTER → 2020-07-09 11:13 | Outpatient (BNVA) | payer MEDICARE, OTHER, SELFPAY | PROVIDERS: PCP Nurse Practitioner; Visit Provider Nurse Practitioner | DX: E11.65 Type 2 diabetes mellitus with hyperglycemia (principal); I10 Essential (primary) hypertension; F31.9 Bipolar disorder, unspecified; M54.5 Low back pain | CPT/HCPCS: 80053; 80061; 81003; 83036; 87077; 87086; 87184 ==

== ENCOUNTER 2020-10-11 10:15 | Observation (INO) | payer MEDICARE, OTHER, SELFPAY ==
[2020-10-11 09:26] VITALS: BP 0/0; PULSE 111; RESP 24; TEMP 36.2; O2SAT 0; BMI 18.7
--- NOTE | 2020-10-11 09:34 | ECG_ITS ---
[facility] Test Date: 2020-10-11 Pat Name: Kia Jimenez Department: Room: Gender: Female Traffic Circuit Engineer: : 1945 Requested By: Anand Henry Order Number: [id number] [place] MD: Myke Schaeffer M.D. Measurements Intervals [place] Rate: 113 P: 80 MN: 183 QRS: 50 QRSD: 132 T: 78 QT: 350 QTc: 480 Interpretive Statements SINUS TACHYCARDIA POSSIBLE LEFT ATRIAL ENLARGEMENT [-0.1mV P WAVE IN V1/V2] INTRAVENTRICULAR CONDUCTION DELAY [130+ ms QRS DURATION] Compared to ECG 12/07/2019 14:28:43 Intraventricular conduction delay now present Sinus rhythm no longer present T-wave abnormality no longer present Electronically Signed On 10-11-2020 17:05:18 CDT by Myke Schaeffer M.D. [id number]
--- NOTE | 2020-10-11 09:37 | W.ED.GENADLT ---
HPI - General Adult General: Chief complaint: Altered Mental Status Stated complaint: AMS, abnormal EKG History of Present Illness: HPI narrative: This patient is a 75-year-old female who presents to the emergency department altered mental status. Patient has a long history of abdominal mass obstructing the outflow of the kidneys. Ultrasound on 12/2019 states this IMPRESSION: 1. Soft tissue mass in the region of the endocervical junction with extension posteriorly towards the rectum and laterally towards the distal ureters measures 6.1 x 4.2 cm. Consistent with the known COLD ROLLING SUPERVISOR neoplasm. Progression in size since 02/25/2019. 2. Distal ureters are obstructed by the COLD ROLLING SUPERVISOR tumor. Patient reportedly was found leaning against the door of her home with altered mental status police officers had to work their way into the house to find the patient. Unknown who called 911. Unknown if there is any family members available. EMS reports the patient appeared to be living alone. Patient has a large palpable mass in the abdomen. Does take chronic medications including tramadol. Glucose at the bedside was 170 by EMS. EKG performed at the bedside shows sinus tachycardia with a heart rate 113. Dr. Schaeffer cardiology did review EKG at the bedside and also confirms this is not a STEMI type EKG. Unable to get a full history from patient due to mental status changes. Will do medical evaluation treat as needed. Associated symptoms: Reports confusion; Deny chest pain, dyspnea, headache(s), nausea, rash, palpitations or vomiting Review of Systems General: Reports: 10 or more systems reviewed and unremarkable except in HPI and below and ROS unobtainable due to mental status Const: Denies: fever(s), chills, body aches or fatigue Eyes: Denies: change in vision or blurry vision ENMT: Denies: throat pain, hoarseness or mouth pain Card: Denies: chest pain, palpitations, irregular heart rhythm, edema, swelling of feet/ankles or lightheadedness Resp: Denies: dyspnea, productive cough, non-productive cough, wheezing or pain on inspiration GI: Denies: abdominal pain, nausea or vomiting : Denies: flank pain, difficulty voiding, dysuria, urinary frequency, urinary urgency or urinary hesitancy Musc: Denies: neck pain, back pain, extremity pain, extremity swelling, joint pain, joint swelling, joint redness, joint warmth or limited range of motion Skin/Breast: Denies: rash, pruritus, erythema or skin tenderness Neuro: Reports: confusion; Denies: headache(s), numbness in extremities or weakness in extremities Psych: Denies: anxiety or depression PFSH ED PFSH: Medical History Benign hypertension Bipolar depression Cancer of uterus Controlled diabetes mellitus with hyperglycemia COPD mixed type Enrolled in chronic care management Frequency of micturition Lumbar pain with radiation down leg Surgical History H/O dilation and curettage History of appendectomy History of cataract History of salpingectomy History of thyroidectomy History of tonsillectomy and adenoidectomy Port-A-Cath in place 12/20/19 at [facility] Family History Other Diabetes Hypertension Denies family history of Bleeding disorder Social History Smoking and tobacco status: current every day smoker Second hand smoke exposure: Yes Smoking risk assessment/counseling performed?: Yes Alcohol intake: never Desire information about alcohol rehabilitation?: No Counseling given: No Desire information about substance/drug rehabilitation?: No Counseling given: No Caregiver/support person: No Lives independently: Yes Household members: none Marital status: Single service: No Current occupational status: retired History of recent travel: No Current gender identity: Female Physical Exam Const: COMMON NORMALS: no acute distress EXAM LIMITATIONS: language barrier (Patient appears to be awake and she understands questions she does node ) and other limitations (With questions. She wishes to be DNR and made comfortable. She does not w) GENERAL APPEARANCE: ill appearing, frail appearing and appears older than stated age NUTRITIONAL APPEARANCE: cachectic ORIENTATION/CONSCIOUSNESS: Yes awake and Yes confused HENMT: COMMON NORMALS: normocephalic, atraumatic, hearing grossly normal bilaterally, external ears normal, EAC's normal, TM's normal bilaterally, Normal external nose present, Normal nasal mucous membranes and turbinates present, moist oral mucous membranes, oropharynx normal, dentition normal and gingiva normal HEAD & SCALP: normocephalic and atraumatic NOSE: Normal external nose present and Normal nasal mucous membranes and turbinates present EXTERNAL EAR: Yes external ears normal EXTERNAL AUDITORY CANAL: EAC's normal TYMPANIC MEMBRANE: TM's normal bilaterally Neck/C-Spine: COMMON NORMALS: full ROM, no lymphadenopathy, supple, no meningeal signs, no JVD, Thyroid normal and No carotid bruits THYROID: Thyroid normal Chest: COMMONS NORMALS: normal inspection of the chest, normal palpation of entire chest wall, normal inspection of the breasts and normal palpation of the breasts Breast/axilla inspection: Yes normal inspection of the breasts BREAST/AXILLA PALPATION: Yes normal palpation of the breasts Resp: COMMON NORMALS: normal respiratory effort, No retractions, No use of accessory muscles, clear to auscultation bilaterally and percussion normal AUSCULTATION: clear to auscultation bilaterally PERCUSSION: percussion normal Cardio: COMMON NORMALS: no JVD, regular rate, regular rhythm, S1 normal heart sound present, S2 normal heart sound present, No gallops present (Cardio), No clicks present (Cardio), No murmurs present (Cardio), No rub (Cardio) and Peripheral pulses 2+ throughout RATE: regular rate RHYTHM: regular rhythm HEART SOUNDS: S1 normal heart sound present and S2 normal heart sound present PERIPHERAL PULSES: Peripheral pulses 2+ throughout GI: PALPATION: Yes Firmness to palpation present (GI) and Yes Palpable mass present RLQ fixed and firm Back/Pelvis: COMMON NORMALS: thoracic and lumbar spine normal to inspection, no thoracic nor lumbar tenderness, thoraco-lumbar ROM normal and straight leg raise negative bilaterally Extremity: COMMON NORMALS: normal to inspection, full ROM, capillary refill normal, no joint enlargement, no clubbing, cyanosis or edema, no calf tenderness and no pedal edema Neuro: MENINGEAL SIGNS: Yes no meningeal signs Course Reevaluation(s): Reevaluation #1: I did discuss at length with Dr. Harris reviewed patient's chart. Patient was placed on BiPAP due to being obtunded. Difficulty getting any vital signs on the patient. Pulse is present at 110 and the patient is awake. But really nonverbal. Patient nods and states that she understands when asked questions. Patient was asked if she would like to be just kept comfortable or would she want to be full code patient wishes to be kept comfortable. And be comfort care only. If she passes away she wishes to be let go. I did discuss at length length with Dr. Harris we did review the patient's chart from the clinic. 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 Patient spent about a month at the hospital at [facility]. But has never had chemotherapy or radiation. Patient has no family in the area talk to. Dr. Harris agrees with comfort care only due to patient's significant mental medical history of cancer that has been untreated for over a year. There is a family member that is listed out of [facility] but phone number is not working number. Nursing staff will continue to try to contact next of kin that is out of state. Time: 10:02 Reevaluation #2: Blood pressure is 68 palpated. Pulse rate of 110. Patient is complaining discomfort. Patient appears to be actively dying. Patient is comfort care Time: 10:08 Reevaluation #3: I discussed at length with patient's daughter who was given up for adoption but found this was her mother about 2 years ago. She was informed that the patient appears to be actively dying. Patient's daughter states understanding. Patient appears to be septic lactic acid is 16 was 28,000. She understands and agrees that the patient may have comfort care Consultations: Consultation #1: I did discuss at length with Dr. Ramos. He will assume care and comfort care and dying patient. Patient's BiPAP will be stopped and IV fluids will be stopped. Patient will be given morphine for discomfort. Time: 10:15 Vital Signs: Vital signs: Vital Signs Temperature 97.2 F L 10/11/20 09:26 Pulse Rate 112 H 10/11/20 10:06 Respiratory Rate 24 H 10/11/20 09:26 Blood Pressure 60/40 10/11/20 10:06 Pulse Oximetry 0 L 10/11/20 09:26 MDM - General Adult MDM Narrative: Medical decision making narrative: This patient is a 75-year-old female who presents to the emergency department altered mental status. Patient has a long history of abdominal mass obstructing the outflow of the kidneys. Ultrasound on 12/2019 states this IMPRESSION: 1. Soft tissue mass in the region of the endocervical junction with extension posteriorly towards the rectum and laterally towards the distal ureters measures 6.1 x 4.2 cm. Consistent with the known COLD ROLLING SUPERVISOR neoplasm. Progression in size since 02/25/2019. 2. Distal ureters are obstructed by the COLD ROLLING SUPERVISOR tumor. Patient reportedly was found leaning against the door of her home with altered mental status police officers had to work their way into the house to find the patient. Unknown who called 911. Unknown if there is any family members available. EMS reports the patient appeared to be living alone. Patient has a large palpable mass in the abdomen. Does take chronic medications including tramadol. Glucose at the bedside was 170 by EMS. EKG performed at the bedside shows sinus tachycardia with a heart rate 113. Dr. Schaeffer cardiology did review EKG at the bedside and also confirms this is not a STEMI type EKG. Unable to get a full history from patient due to mental status changes. Will do medical evaluation treat as needed. did discuss at length with Dr. Harris reviewed patient's chart. Patient was placed on BiPAP due to being obtunded. Difficulty getting any vital signs on the patient. Pulse is present at 110 and the patient is awake. But really nonverbal. Patient nods and states that she understands when asked questions. Patient was asked if she would like to be just kept comfortable or would she want to be full code patient wishes to be kept comfortable. And be comfort care only. If she passes away she wishes to be let go. I did discuss at length length with Dr. Harris we did review the patient's chart from the clinic. 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 Patient spent about a month at the hospital at [facility]. But has never had chemotherapy or radiation. Patient has no family in the area talk to. Dr. Harris agrees with comfort care only due to patient's significant mental medical history of cancer that has been untreated for over a year. There is a family member that is listed out of [place] but phone number is not working number. Nursing staff will continue to try to contact next of kin that is out of state. Blood pressure is 68 palpated. Pulse rate of 110. Patient is complaining discomfort. Patient appears to be actively dying. Patient is comfort care I did discuss at length with Dr. Ramos. He will assume care and comfort care and dying patient. Patient's BiPAP will be stopped and IV fluids will be stopped. Patient will be given morphine for discomfort. Medical Records: Attestation: I reviewed the patient's medical records. Lab Data: Attestation: I reviewed the patient's lab results. Labs: Lab Results 10/11/20 10/11/20 10/11/20 Range/Units 09:47 09:47 09:47 WBC 28.5 H (4.0-10.0) 10^3/ uL RBC 5.19 (4.1-5.3) 10^6/u L Hgb 11.9 (11.5-15.3) g/dL Hct 42.2 (37.0-47.0) % MCV 81.3 (81-99) fL MCH 22.9 L (28.0-34.0) pg MCHC 28.2 L (30.0-36.0) g/dL RDW 18.1 H (12.1-15.1) % Plt Count 419 H (130-400) 10^3/c mm MPV 10.9 H (7.4-10.4) fL Neut % (Auto) 88.5 % Lymph % (Auto) 3.4 % [place] % (Auto) 4.8 % Eos % (Auto) 0.0 % Baso % (Auto) 0.2 % Neut # (Auto) 25.18 H (1.8-7.7) 10^3/u L Lymph # (Auto) 1.0 (0.8-4.8) 10^3/u L [place] # (Auto) 1.4 H (0.2-0.9) 10^3/u L Eos # (Auto) 0.0 (0.0-0.8) 10^3/u L Baso # (Auto) 0.1 (0.0-0.1) 10^3/u L Nucleated RBC % (a uto) 0.2 % Nucleated RBCs # 0.1 /100WBC PT (12.1-14.9) SECO NDS INR (0.8-1.2) APTT (23.9-36.7) SECO NDS Sodium 130 L (136-145) mmol/L Potassium 8.4 H* (3.5-5.1) mmol/L Chloride 89 L (98-107) mmol/L Carbon Dioxide 8 L* (22-29) mmol/L Anion Gap 41.4 H (5-19) BUN 72 H (8-23) mg/dL Creatinine 2.8 H (0.5-0.9) mg/dL GFR Calculation Not Reportable Glucose 105 (65-115) mg/dL POC Glucose (70-110) mg/dL Calculated Osmolal ity 292 (285-295) mOsm/k g Lactic Acid (0.5-2.2) mmol/L Calcium 9.7 (8.5-10.5) mg/dL Total Bilirubin 1.8 H (0.15-1.2) mg/dL ALT 294 H (0-33) U/L Alkaline Phosphata se 461 H (35-105) IU/L Ammonia 140 H (11-51) umol/L Troponin T Baselin e (0-10) ng/L NT-Pro-B Natriuret Pep 3101 H (0-450) pg/mL Total Protein 4.9 L (6.6-8.7) g/dL Albumin 3.1 L (3.5-5.2) g/dL Globulin 1.8 (1.3-4.6) g/dL Lipase 16 (13-60) U/L Salicylates < 0.3 L (3-10) mg/dL Ethyl Alcohol < 10 (0-10) mg/dL 10/11/20 10/11/20 10/11/20 Range/Units 09:47 09:47 09:47 WBC (4.0-10.0) 10^3/ uL RBC (4.1-5.3) 10^6/u L Hgb (11.5-15.3) g/dL Hct (37.0-47.0) % MCV (81-99) fL MCH (28.0-34.0) pg MCHC (30.0-36.0) g/dL RDW (12.1-15.1) % Plt Count (130-400) 10^3/c mm MPV (7.4-10.4) fL Neut % (Auto) % Lymph % (Auto) % [place] % (Auto) % Eos % (Auto) % Baso % (Auto) % Neut # (Auto) (1.8-7.7) 10^3/u L Lymph # (Auto) (0.8-4.8) 10^3/u L [place] # (Auto) (0.2-0.9) 10^3/u L Eos # (Auto) (0.0-0.8) 10^3/u L Baso # (Auto) (0.0-0.1) 10^3/u L Nucleated RBC % (a uto) % Nucleated RBCs # /100WBC PT 19.20 H (12.1-14.9) SECO NDS INR 1.58 H (0.8-1.2) APTT 40.8 H (23.9-36.7) SECO NDS Sodium (136-145) mmol/L Potassium (3.5-5.1) mmol/L Chloride (98-107) mmol/L Carbon Dioxide (22-29) mmol/L Anion Gap (5-19) BUN (8-23) mg/dL Creatinine (0.5-0.9) mg/dL GFR Calculation Glucose (65-115) mg/dL POC Glucose (70-110) mg/dL Calculated Osmolal ity (285-295) mOsm/k g Lactic Acid 16.7 H* (0.5-2.2) mmol/L Calcium (8.5-10.5) mg/dL Total Bilirubin (0.15-1.2) mg/dL ALT (0-33) U/L Alkaline Phosphata se (35-105) IU/L Ammonia (11-51) umol/L Troponin T Baselin e 44 H (0-10) ng/L NT-Pro-B Natriuret Pep (0-450) pg/mL Total Protein (6.6-8.7) g/dL Albumin (3.5-5.2) g/dL Globulin (1.3-4.6) g/dL Lipase (13-60) U/L Salicylates (3-10) mg/dL Ethyl Alcohol (0-10) mg/dL 10/11/20 Range/Units 09:56 WBC (4.0-10.0) 10^3/ uL RBC (4.1-5.3) 10^6/u L Hgb (11.5-15.3) g/dL Hct (37.0-47.0) % MCV (81-99) fL MCH (28.0-34.0) pg MCHC (30.0-36.0) g/dL RDW (12.1-15.1) % Plt Count (130-400) 10^3/c mm MPV (7.4-10.4) fL Neut % (Auto) % Lymph % (Auto) % [place] % (Auto) % Eos % (Auto) % Baso % (Auto) % Neut # (Auto) (1.8-7.7) 10^3/u L Lymph # (Auto) (0.8-4.8) 10^3/u L [place] # (Auto) (0.2-0.9) 10^3/u L Eos # (Auto) (0.0-0.8) 10^3/u L Baso # (Auto) (0.0-0.1) 10^3/u L Nucleated RBC % (a uto) % Nucleated RBCs # /100WBC PT (12.1-14.9) SECO NDS INR (0.8-1.2) APTT (23.9-36.7) SECO NDS Sodium (136-145) mmol/L Potassium (3.5-5.1) mmol/L Chloride (98-107) mmol/L Carbon Dioxide (22-29) mmol/L Anion Gap (5-19) BUN (8-23) mg/dL Creatinine (0.5-0.9) mg/dL GFR Calculation Glucose (65-115) mg/dL POC Glucose 163 H (70-110) mg/dL Calculated Osmolal ity (285-295) mOsm/k g Lactic Acid (0.5-2.2) mmol/L Calcium (8.5-10.5) mg/dL Total Bilirubin (0.15-1.2) mg/dL ALT (0-33) U/L Alkaline Phosphata se (35-105) IU/L Ammonia (11-51) umol/L Troponin T Baselin e (0-10) ng/L NT-Pro-B Natriuret Pep (0-450) pg/mL Total Protein (6.6-8.7) g/dL Albumin (3.5-5.2) g/dL Globulin (1.3-4.6) g/dL Lipase (13-60) U/L Salicylates (3-10) mg/dL Ethyl Alcohol (0-10) mg/dL EKG Data^: EKG 1: Attestation: I personally reviewed and interpreted this EKG as follows: EKG interpretation date: 10/11/20 EKG interpretation time: 09:29 Prior EKG tracings: not available for review Ischemic changes: non-specific ST-T wave changes Interpretation: Sinus tachycardia heart rate 113 left atrial enlargement. Interventricular conduction delay. This is an abnormal EKG. EKG was reviewed by Dr. Monterroso at the bedside. 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, Need for comfort care, Sepsis Condition: Stable Prescriptions: No Action albuterol sulfate 2.5 mg /3 mL (0.083 %) solution for nebulization 2.5 mg INHALATION Q4H PRN (Reason: shortness of breath or wheezing) Qty: 180 RF: 2 potassium 99 mg tablet 99 mg PO DAILY RF: 0 diphenoxylate-atropine [Lomotil] 2.5-0.025 mg tablet 1 tab PO TID RF: 0 ondansetron HCl [Zofran] 4 mg tablet 4 mg PO Q6H PRN (Reason: nausea and vomiting) RF: 0 atorvastatin [Lipitor] 10 mg tablet 10 mg PO DAILY Qty: 30 RF: 2 lamotrigine 100 mg tablet 100 mg PO DAILY Qty: 30 RF: 2 tramadol 50 mg tablet 50 mg PO BID Qty: 60 RF: 2 venlafaxine [Effexor XR] 75 mg capsule,extended release 24hr 75 mg PO BID Qty: 60 RF: 2 Bydureon BCise 2 mg/0.85 mL auto-injector 2 mg SUBCUT Q7D Qty: 3.4 RF: 2 (DME) OneTouch Ultra Blue Test Strip Strip See Rx Instructions .ROUTE .MEDSUPPLY Qty: 50 RF: 0 (DME) blood-glucose meter [OneTouch Ultra2 Meter] Kit See Rx Instructions .ROUTE .MEDSUPPLY Qty: 1 RF: 0 (DME) lancets [OneTouch Delica Plus Lancet] 33 gauge misc See Rx Instructions .ROUTE .MEDSUPPLY Qty: 100 RF: 5 Referrals: Ayesha Harris, [employer] [Primary Care Provider] - Coding Level of Care Code ED Dough Cutter for Chg Fwd Exam Comprehensive
[2020-10-11] MEDS: sodium chloride 0.9% 500 ML IV (09:45)
[2020-10-11] MEDS: naloxone 0.4 mg/ml SDV IVP (09:50)
--- NOTE | 2020-10-11 09:50 | PC.NURSE ---
unable to get any BP or oxygen saturation on Pt during triage assessment. ED physician in room.
[2020-10-11 10:00] LABS: Basophils # 0.1 10^3/uL (0.0-0.1); Basophils % 0.2 %; Hematocrit 42.2 % (37.0-47.0); Hemoglobin 11.9 g/dL (11.5-15.3); Lymphocytes % 3.4 %; Mean Corpuscular HGB Conc 28.2 g/dL (30.0-36.0); Mean Corpuscular Hemoglobin 22.9 pg (28.0-34.0); Mean Corpuscular Volume 81.3 fL (81-99); Mean Platelet Volume 10.9 fL (7.4-10.4); Monocytes # 1.4 10^3/uL (0.2-0.9); Monocytes % 4.8 %; Neutrophils # 25.18 10^3/uL (1.8-7.7); Neutrophils % 88.5 %; Nucleated Red Blood Cells # 0.1 /100WBC; Nucleated Red Blood Cells % 0.2 %; Platelet Count 419 10^3/cmm (130-400); Red Blood Count 5.19 10^6/uL (4.1-5.3); Red Cell Distribution Width 18.1 % (12.1-15.1); White Blood Count 28.5 10^3/uL (4.0-10.0)
[2020-10-11] MEDS: ondansetron 2 mg/ML SDV 2 mL 4 MG IVP (10:02)
[2020-10-11 10:06] VITALS: BP 60/40; PULSE 112
[2020-10-11 10:07] VITALS: RESP 24
[2020-10-11 10:10] LABS: INR 1.58 (0.8-1.2)
[2020-10-11 10:11] LABS: Glucose Point of Care 163 mg/dL (70-110)
[2020-10-11 10:11] LABS: Partial Thromboplastin Time 40.8 SECONDS (23.9-36.7)
[2020-10-11 10:14] LABS: Troponin(5th) Baseline 44 ng/L (0-10)
[2020-10-11 10:17] LABS: Ammonia 140 umol/L (11-51)
[2020-10-11 10:23] LABS: Lactic Sepsis W/Reflex 16.7 mmol/L (0.5-2.2)
[2020-10-11 10:24] LABS: Alanine Aminotransferase 294 U/L (0-33); Albumin Level 3.1 g/dL (3.5-5.2); Alkaline Phosphatase 461 IU/L (35-105); Anion Gap 41.4 (5-19); Blood Urea Nitrogen 72 mg/dL (8-23); Calcium 9.7 mg/dL (8.5-10.5); Chloride 89 mmol/L (98-107); Globulin 1.8 g/dL (1.3-4.6); Glucose 105 mg/dL (65-115); Lipase 16 U/L (13-60); NT Pro B Type Natriuretic Pept 3101 pg/mL (0-450); Osmolality Calculated 292 mOsm/kg (285-295); Sodium 130 mmol/L (136-145); Total Bilirubin 1.8 mg/dL (0.15-1.2); Total Protein 4.9 g/dL (6.6-8.7)
[2020-10-11 10:26] LABS: Alcohol Level < 10 mg/dL (0-10); Carbon Dioxide 8 mmol/L (22-29); Potassium 8.4 mmol/L (3.5-5.1); Salicylate < 0.3 mg/dL (3-10)
[2020-10-11 10:32] LABS: Aspartate Amino Transferase 714 U/L (0-32)
--- NOTE | 2020-10-11 11:08 | PC.PHAR ---
PT UNABLE TO VERIFY MEDICATIONS-MEDICATIONS ENTERED ARE FROM THE MED BOTTLES THAT WERE BROUGHT IN WITH THE PT-NOTES ARE MADE IN THE PHARMACY COMMENTS OF EACH RX
[2020-10-11 11:15] VITALS: RESP 12
[2020-10-11] MEDS: morphine 4 mg/mL SDV 1 mL 1 MG IVP (11:15)
[2020-10-11] MEDS: LORazepam 2 mg/mL INJ 1 mL 1 MG IVP (11:15)
[2020-10-11 11:17] VITALS: BP 60/40; PULSE 100; RESP 12
[2020-10-11 11:21] VITALS: RESP 18
[2020-10-11] MEDS: morphine 4 mg/mL SDV 1 mL 2 MG IVP (11:21)
[2020-10-11 11:45] LABS: Reflex Lactate Order REFLEX LACTIC ORDERD
--- NOTE | 2020-10-11 12:24 | PM.HP ---
Providers/Chief Complaint Admitting Physician: Trenton Ramos MD Primary Care Provider: DEVONTE Yap-Zenobia Chief Complaint: AMS, abnormal EKG History of Present Illness Kia Jimenez is a 75 year old female that presented to the emergency department with weakness, confusion, shortness of breath. Patient herself was not able to give me any kind of history during my evaluation. The emergency department physician had seen her, evaluated her condition, and was able to visit with the patient regarding her wishes. She has a history of underlying gynecologic tumor that she had refused any intervention. From what was related to me, she wanted to pursue comfort measures. There was not an option for her to go home with hospice, as she did not have social support at home for this. Emergency department physician believed the best avenue would be transitioning to hospital for continued comfort measures per the patient's wishes. From my understanding a daughter was notified about this from the emergency department as well. When she first arrived to the emergency department BiPAP, and fluids were initiated. When comfort care was identified, this was discontinued and Ativan and morphine given and as needed for pain, air hunger and agitation. Review of Systems General: Reports: ROS unobtainable due to mental status (Patient sedated when I evaluated her.) Medications/Allergies Home Medications Medication Instructions Recorded Confirmed Last Taken Type albuterol sulfate 2.5 mg INHALATION Q4H PRN #180 ml 12/23/19 10/11/20 Unknown Rx blood sugar diagnostic #50 each 01/03/20 10/11/20 Unknown Rx blood-glucose meter #1 each 01/03/20 10/11/20 Unknown Rx lancets 33 gauge #100 each 01/03/20 10/11/20 Unknown Rx ondansetron HCl 4 mg tablet 4 mg PO Q8H PRN 05/07/20 10/11/20 Unknown History potassium 99 mg tablet 99 mg PO DAILY tab 05/07/20 10/11/20 Unknown History lamotrigine 100 mg tablet 100 mg PO DAILY #30 tab 07/09/20 10/11/20 Unknown Rx venlafaxine 75 mg capsule,extended 75 mg PO BID #60 cap 07/09/20 10/11/20 Unknown Rx release 24 hr Lipitor 10 mg PO DAILY 10/11/20 10/11/20 Unknown History acetaminophen [Tylenol Extra 500 - 1,000 mg PO PRN 10/11/20 10/11/20 Unknown History Strength] exenatide microspheres [Bydureon 2 mg SUBCUT Q7D 10/11/20 10/11/20 Unknown History BCise] loperamide [Anti-Diarrhea] 2 - 4 mg PO PRN MDD 8 TABS 10/11/20 10/11/20 Unknown History magnesium oxide 400 - 800 mg PO QPM 10/11/20 10/11/20 Unknown History meclizine 25 mg PO TID PRN 10/11/20 10/11/20 Unknown History prochlorperazine maleate 10 mg PO Q6H PRN 10/11/20 10/11/20 Unknown History [Compazine] spironolactone 25 mg PO BID 10/11/20 10/11/20 Unknown History tramadol 50 mg PO BID 10/11/20 10/11/20 Unknown History Allergies Allergy/AdvReac Type Severity Reaction Status Date / Time lisinopril AdvReac ADR-Cough Verified 11/27/19 16:09 PFSH Acute PFSH: Medical History Benign hypertension Bipolar depression Cancer of uterus Controlled diabetes mellitus with hyperglycemia COPD mixed type Enrolled in chronic care management Frequency of micturition Lumbar pain with radiation down leg Surgical History H/O dilation and curettage History of appendectomy History of cataract History of salpingectomy History of thyroidectomy History of tonsillectomy and adenoidectomy Port-A-Cath in place 12/20/19 at [facility] Family History Other Diabetes Hypertension Denies family history of Bleeding disorder Social History Smoking and tobacco status: current every day smoker Second hand smoke exposure: Yes Smoking risk assessment/counseling performed?: Yes Alcohol intake: never Desire information about alcohol rehabilitation?: No Counseling given: No Desire information about substance/drug rehabilitation?: No Counseling given: No Caregiver/support person: No Lives independently: Yes Household members: none Marital status: Single service: No Current occupational status: retired History of recent travel: No Current gender identity: Female Vitals/I&O/Wt Last Vital Signs Temp 97.2 F L 10/11/20 09:26 Pulse 100 10/11/20 11:17 Resp 18 10/11/20 11:21 BP 60/40 10/11/20 11:17 Pulse Ox 0 L 10/11/20 09:26 Weight last 48 hrs Weight 52.617 kg Physical Exam Narrative: EXAM NARRATIVE: General exam is a white female, with difficulty verbalizing any responses who appears dyspneic. HEENT: Pupils equally round. Oropharynx dry. Neck is supple no lymphadenopathy or thyromegaly Cardiovascular tachycardic, no murmur Lungs diminished breath sounds at the bases Abdomen large mass noted right side. Few bowel sounds are noted now. Extremities no cyanosis clubbing or edema Skin no rash Neuro no focal deficits. Data : 10/11/20 09:47 10/11/20 09:47 Micro: Microbiology 10/11/20 09:47 Blood Culture - Preliminary Blood SPECIMEN COLLECTED Other data: INR 1.58 Lactic acid 16.7 Total bilirubin 1.8 with AST of 714 and ALT of 294. Alk phos 461 and ammonia level 140. BNP 07/02/2000. Troponin 44. Lipase 16. Alcohol level less than 10, salicylate level less than 0.3 A&P Assessment and plan (1) Gynecologic malignancy: Patient indicated wish for comfort measures. Morphine, Ativan as needed Oxygen [address] [place] Other supportive measures as appropriate. Status: Acute (2) Dying/ measures: Status: Acute Additional A&P Information Multiple other medical problems as outlined in past medical history DNR as per ER physician who had extensive discussion with patient, primary care provider, and daughter Patient quickly after placement in the hospital, at 1217. Attestations Medical Necessity Statement*: Not applicable, outpatient in a bed Time Spent in Patient Care: Greater than 35 minutes Coding Level of Care Code Acute Pencil Sorter for Chg Fwd Diagnoses Gynecologic malignancy C57.9 Dying/ measures Z51.5
--- NOTE | 2020-10-11 12:25 | PC.CHAP ---
Pastoral Care Encounter/Spiritual Assessment Type of Contact [] Declined head lineman visit [] Patient/Family/Request visit [] Outpatient visit [] Follow-up visit [] Physician referral [] Code/Alert [] Routine visit [] Staff referral [] Actively dying [] Patient sleeping [] Family support [] [] Out of room [] Palliative care [] [] Receiving care in room [] Pre-surgical visit [] Trauma [] Long length of stay [] ICU visit [] Other: Relational/Emotional Strength [] Patient feels connected with others/family/visitors/staff [] Distress [] Loneliness/isolation [] Abandonment Spirituality of Patient [] Person of Francesca [] Attends Religion of their Francesca [] Believes in Prayer [] Reads Bible or Methodist materials [] There are Spiritual issues to be addressed Freight Breaker Interventions [] Prayer [] Active listening [] Non-anxious presence [] Spiritual/emotional support [] Crisis/trauma care [] Spiritual counseling [] Bereavement support [] Provided bereavement packet [] Provided Bible/devotional materials [] Provided toy/stuffed animal, coloring book to patient or family member [] Provided Communion [] Anointing/Hazel [] Salvation [] Completed spiritual assessment [] Other: Impact on Illness or Injury [] Angry [] Fearful [] Anxious [] Often cries [] Exhaustion [] Unable to work [] Unable to attend buddhism [] Unable to walk/stand [] Unable to read [] Unable to drive [] Unable to eat/drink [] Unable to sleep [] Unable to be with family [] Patient intubated [] Other: Summary Called to ER ... told patient would not make it... sat with her until she passed as 12-19 am Time spent with patient
--- NOTE | 2020-10-11 12:33 | PM.DDS ---
Discharge Providers DDS Date of Admission: 10/11/20 10:27 Date Summary Completed: 10/11/20 Attending Provider at Admission: Trenton Ramos MD Time of : 12:17 Attending Provider at Discharge: Trenton Ramos MD Primary Care Provider: NATALIE Yap Diagnoses Hospital Diagnoses (1) Gynecologic malignancy: (2) Dying/ measures: Reason for Visit Reason for Visit: AMS, abnormal EKG Summary Date and Time of Date of : 10/11/20 Time of : 12:17 Summary Summary: Kia is a 75-year-old white female who presented to the emergency department with dyspnea, confusion. 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 Upon arrival she visited with the emergency department physician, who in turn visited with her primary. Patient had wished for comfort measures only, which were initiated by the emergency department physician. She was transition to outpatient in a bed, with comfort measures ordered. She quickly after arrival to the hospital gee, at 1217. Additional Data Confirmation of as documented by pronouncing clinician: no pulse, no respirations, no heart sounds and pupils fixed and dilated Additional persons at bedside: nursing staff Attending/PCP notified?: Attending notified Was code activated?: No Autopsy requested?: No Hospice patient?: No Discharge Plan Discharge Patient Disposition: At Medical Facility Condition: Stable Prescriptions: No Action albuterol sulfate 2.5 mg /3 mL (0.083 %) solution for nebulization 2.5 mg INHALATION Q4H PRN (Reason: shortness of breath or wheezing) Qty: 180 RF: 2 potassium 99 mg tablet 99 mg PO DAILY RF: 0 ondansetron HCl [Zofran] 4 mg tablet 4 mg PO Q8H PRN (Reason: nausea and vomiting) RF: 0 lamotrigine 100 mg tablet 100 mg PO DAILY Qty: 30 RF: 2 venlafaxine [Effexor XR] 75 mg capsule,extended release 24hr 75 mg PO BID Qty: 60 RF: 2 (DME) OneTouch Ultra Blue Test Strip Strip See Rx Instructions .ROUTE .MEDSUPPLY Qty: 50 RF: 0 (DME) blood-glucose meter [OneTouch Ultra2 Meter] Kit See Rx Instructions .ROUTE .MEDSUPPLY Qty: 1 RF: 0 (DME) lancets [OneTouch Delica Plus Lancet] 33 gauge misc See Rx Instructions .ROUTE .MEDSUPPLY Qty: 100 RF: 5 Anti-Diarrhea 2 mg Tablet 2 - 4 mg PO PRN MDD 8 TABS RF: 0 Compazine 10 mg Tablet 10 mg PO Q6H PRN (Reason: Nausea) RF: 0 Tylenol Extra Strength 500 mg Tablet 500 - 1,000 mg PO PRN RF: 0 spironolactone 25 mg Tablet 25 mg PO BID RF: 0 meclizine 25 mg Tablet 25 mg PO TID PRN (Reason: Nausea) RF: 0 magnesium oxide 400 mg magnesium Tablet 400 - 800 mg PO QPM RF: 0 Lipitor 10 mg tablet 10 mg PO DAILY RF: 0 tramadol 50 mg tablet 50 mg PO BID RF: 0 Bydureon BCise 2 mg/0.85 mL auto-injector 2 mg SUBCUT Q7D RF: 0 Referrals: Ayesha Harris, LEAD [employer] DEVELOPER-[employer] [Primary Care Provider] - Patient Instructions: Opioid Safety DS Attestations Time Spent in /Discharge Care*: less than 30 min Quality - AMI: AMI present?: No Quality - Stroke: CVA present?: No Quality - VTE: VTE present?: No Coding Level of Care Code Acute Professional Healthcare Representative for g Fwd Diagnoses Gynecologic malignancy C57.9 Dying/ measures Z51.5
--- NOTE | 2020-10-11 12:45 | PC.SOCIAL ---
spoke with DAughter Pito xlk was placed for adoption when born and has only been in contact with Mother for a few years but over last 2 Patient has closed herself off from all family and did not want to discuss CA diagnosis per Pito. Pito lives in [place]. Was able to let Pito say her goodbyes and patient nodded her head that she understood and could hear. Notified Pito that pt at 1217. Per Pito the other sister Gillian Mott is driving here from [place] and will help make arrangements with home and burial. Her phone: [phone]. Notified Geraldine that is best to take to [facility] and can call Gillian later to confirm what time she would like to meet to discuss the furneral home. She is upset at this time and will need a little bit to compose herself after learning of her Mothers passing per Pito which is understandable.
--- NOTE | 2020-10-11 13:14 | PC.NURSE ---
PT ARRIVED TO THE FLOOR AROUND 1112. THIS NURSE AND A NURSE FROM THE ER MOVED THE PT INTO THE BED ON THE FLOOR AND POSITIONED HER TO WHERE SHE LOOKED COMFORTABLE. VITALS WERE ATTEMPTED BY MULTIPLE STAFF MEMBERS BUT WE WERE UNABLE TO GET ANY GOOD READINGS. PT WAS PUT ON TELEMETRY SO WE COULD MONITOR HER BETTER. ONE OF THE CHAPLAINS SAT IN WITH THE PT DURING HER STAY. PT WAS GIVEN A BED BATH BY THIS NURSE WELL HELP FROM THE CHARGE NURSE AND THREE AIDS. PT WAS GIVEN MORPHINE VIA DOCTORS ORDER. PT APPEARS TO BE LAYING IN BED COMFORTABLY. WILL CONTINUE TO MONITOR. PT PEACEFULLY AT 1217. THIS NURSE AND Ronald HARRY, RN, CHARGE NURSE, ASSESSED PTS PULSES AND NONE WERE PALPABLE NOR ABLE TO BE AUSCULTATED. DOCTOR NOTIFIED. METALLURGICAL TECHNICIAN NOTIFIED. FAMILY NOTIFIED.
--- NOTE | 2020-10-11 13:29 | PC.SOCIAL ---
provided the numbers for [facility] to
--- NOTE | 2020-10-11 14:28 | PC.SOCIAL ---
Daughter Gillian Oconnell called back after numbers for [facility] in [facility] were sent to her. She has chosen [facility]. Sent her the address. Notified Gillian house rn that [facility] was chosen and provided number for home and for Gillian Oconnell the daughter. Asked that the daughter's number be given to the home as well. All questions were answered by this nurse for daughter and she was appreciative. Will be at least 6 more hours maybe more before they arrive locally.
== END 2020-10-11 13:56 ==
LOC: ER 10:35 → MEDSURG 10:40
PROVIDERS: Admitting Provider Internal Medicine; Emergency Provider Emergency Medicine; PCP Nurse Practitioner; Visit Provider Internal Medicine
DX: C57.9 Malignant neoplasm of female genital organ, unspecified (principal); Z51.5 Encounter for palliative care; I10 Essential (primary) hypertension; J44.9 Chronic obstructive pulmonary disease, unspecified; Z82.49 Family history of ischemic heart disease and other diseases of the circulatory system; Z83.3 Family history of diabetes mellitus; F17.210 Nicotine dependence, cigarettes, uncomplicated
CPT/HCPCS: 36416; 80053; 80307; 82140; 82962; 83605; 83690; 83880; 84484; 85025; 85610; 85730; 87040; 87205; 93005; 94660; 96361; 96374; 96375; 99285; G0378; J2060; J2270; J2310; J2405; J7040